=== PATIENT | female | born 1950 | race Caucasian/White ===

== ENCOUNTER 2017-05-09 10:00 | Inpatient (IN) | payer MEDICARE, OTHER ==
[~2017-05-09 10:00] MED LIST: Buffered Lidocaine 0.9% SYRIN* 5 ML/SYR SYRINGE INTRADERM ONE; Famotidine IV* 10 MG/ML 2 ML (20 mg) IV ONE
[2017-05-16] MEDS ORDERED: Buffered Lidocaine 0.9% SYRIN* 5 ML/SYR SYRINGE INTRADERM ONE (06:00)
[2017-05-16] MEDS ORDERED: Metoclopramide IV* 5 MG/ML 2 ML VIAL IV SLOW PU ONE (06:00)
[2017-05-16] MEDS ORDERED: Famotidine IV* 10 MG/ML 2 ML (20 mg) IV ONE (06:00)
[2017-05-16] MEDS ORDERED: ceFAZolin 2 GM PREMIX (*) 50 ML IVPB ONE (11:58)
[2017-05-16] MEDS ORDERED: ceFAZolin 1 GM ADVAN(*) 1 GM ADDV.VIAL IVPB ONE (11:58)
[2017-05-16] MEDS ORDERED: Famotidine IV* 10 MG/ML 2 ML (20 mg) ONE (11:58)
[2017-05-16] MEDS ORDERED: Buffered Lidocaine 0.9% SYRIN* 5 ML/SYR SYRINGE ONE (11:58)
[2017-05-16] MEDS ORDERED: Metoclopramide IV* 5 MG/ML 2 ML VIAL ONE (11:59)
[2017-05-16] MEDS ORDERED: Bupivacaine 0.5% SDV PF* 30 ML VIAL ONE ×2 (13:17→14:51)
[2017-05-16] MEDS ORDERED: fentaNYL* 50 MCG/ML 2 ML VIAL (100 MCG VIAL) ONE (13:58)
[2017-05-16] MEDS ORDERED: Midazolam* 1 MG/ML 5 ML VIAL (5 MG) ONE ×2 (13:58→14:37)
[2017-05-16] MEDS ORDERED: KETAMINE HCL* 50 MG/ML 10 ML VIAL ONE (13:59)
[2017-05-16] MEDS ORDERED: Ondansetron INJ* 2 MG/ML VIAL ONE (14:00)
[2017-05-16] MEDS ORDERED: Propofol* 10 MG/ML 20 ML BTL IV PUSH ONE (14:00)
[2017-05-16] MEDS ORDERED: Lidocaine 2% PF * 5 ML VIAL ONE (14:31)
[2017-05-16] MEDS ORDERED: Lidocaine 2% PF* 10 ML AMP ONE (14:32)
[2017-05-16] MEDS ORDERED: EPHEDrine (Pressors)* 50 MG/ML VIAL ONE (14:52)
[2017-05-16] MEDS ORDERED: Glycopyrrolate IV* 0.2 MG/ML 1 ML VIAL ONE (14:52)
[2017-05-16] MEDS ORDERED: Phenylephrine IV* 40 MCG/ML 10 ML SYRINGE ONE (14:53)
[2017-05-16] MEDS ORDERED: HYDROmorphone* 1 MG/ML 1 ML SYR IV PRN (15:08)
[2017-05-16] MEDS ORDERED: fentaNYL* 50 MCG/ML 2 ML VIAL (100 MCG VIAL) IV PRN (15:08)
[2017-05-16] MEDS ORDERED: Ondansetron INJ* 2 MG/ML VIAL IV PRN ×2 (15:08→16:11)
[2017-05-16] MEDS ORDERED: oxyCODONE/Acetamin 5/325 MG* TAB PO PRN (15:08)
[2017-05-16] MEDS ORDERED: Gelfoam Sponge SIZE 100* SPONGE ONE (15:47)
[2017-05-16] MEDS ORDERED: Morphine INJ* 4 MG/ML 1 ML SYRINGE IV PRN (16:11)
[2017-05-16] MEDS ORDERED: Magnesium Hydroxide LIQ* 30 ML UDC PO PRN (16:11)
[2017-05-16] MEDS ORDERED: Acetaminophen TAB* 325 MG PO PRN (16:11)
[2017-05-16] MEDS ORDERED: diPHENhydraMINE IV* 50 MG/ML 1 ml VIAL (BENADRYL) IV PRN (16:11)
[2017-05-16] MEDS ORDERED: Ondansetron TAB* 4 MG PO PRN (16:11)
[2017-05-16] MEDS ORDERED: Polyethylene Glycol 3350* 17 GM PACKET PO PRN (16:11)
[2017-05-16] MEDS ORDERED: Bisacodyl SUPP* 10 MG SUPP PR PRN (16:11)
[2017-05-16] MEDS ORDERED: Albuterol 2.5 MG/3 ML NEB.SOL* (0.083%) INH PRN (16:23)
[2017-05-16] MEDS ORDERED: Albuterol HFA INHALER* 8 gm MDI INH PRN (16:23)
[2017-05-16] MEDS ORDERED: Dextrose 50% Syringe 50 ML* 25 GM/50 ML SYRINGE IV PUSH PRN (18:13)
[2017-05-16] MEDS ORDERED: Furosemide IV* 10 MG/ML 2 ML VIAL (20 MG) IV ONE (18:57)
[2017-05-16] MEDS: oxyCODONE TAB* 5 MG TAB PO PRN (19:31)
--- NOTE | 2017-05-16 19:39 | RAD ---
Indication: Rales, coronary artery disease. Single frontal view of the chest performed at 1920 hours was reviewed. Comparison is made with previous exam dated December 17, 2015. No mediastinal shift is noted. Heart is of normal size and configuration. Lung graves appear clear. IMPRESSION: NO ACTIVE CARDIOPULMONARY DISEASE IS NOTED.
[2017-05-16] MEDS ORDERED: Warfarin TAB(*) 5 MG PO ONE (20:05)
[2017-05-16] MEDS: Atorvastatin* 20 MG TAB PO SCH (20:26)
[2017-05-16] MEDS: Docusate CAP* 100 MG PO SCH (20:26)
[2017-05-16] MEDS: Gabapentin CAP(*) 300 MG PO SCH (20:26)
[2017-05-16] MEDS: Insulin NPH(*) 1 UNITS UNIT SUBCUT SCH (20:28)
[2017-05-16] MEDS: Artificial Tears* 15 ML BTL BOTH EYES SCH (20:29)
[2017-05-16] MEDS: ceFAZolin 1 GM VIAL(*) 1 GM in NS 0.9% 50 ML* 50 ML IVPB SCH (21:27)
--- NOTE | 2017-05-16 22:16 | CONS ---
CC: Farhan Edouard MD; Joseluis Salas MD CONSULTATION REPORT: DATE OF CONSULTATION: PRIMARY CARE PROVIDER: Farhan Edouard MD REFERRING PROVIDER: Kamar Valadez MD MY ATTENDING HOSPITALIST: Joseluis Salas MD REASON FOR CONSULTATION: Co-management of comorbid medical conditions. HISTORY OF PRESENT ILLNESS: Ms. Gallardo is a 66-year-old female with a past medical history significant for diabetes, hypertension, kidney failure, heart disease with a stent, and hind foot valgus with severe arthritis, who is postop for a talotibial fusion. She also had a PE in December 2009. The patient states she is feeling generally very well except she is a little woozy after surgery. The patient had spinal anesthesia and denies any pain at the surgery site and states that she aches all over, but denies if it is any worse than her baseline. The patient denies chest pain, shortness of breath, nausea, vomiting , or dizziness. The patient states that she took her blood sugar this morning and it was 141, which is about normal for her. The patient states her most recent hemoglobin A1c was approximately 8 at her PCP's office last month. The patient denies any worsening complications from her diabetes including worse numbness or tingling in her hands or feet, decrease in her urine, change in her vision, or changes in her digestive functioning. She is currently on aspirin only for DVT prophylaxis despite her pulmonary embolism being unprovoked. The patient states she was on Coumadin for one month, but that is now done. The patient states she has an inhaler for her asthma, but never uses it. The patient denies any recent illnesses or trauma. EBL for the surgery was minimal. The patient denies any increase in the swelling in her legs or shortness of breath with exertion, though the patient states she does not exercise due to the limitations of her arthritis in her foot. The patient states she does not follow her daily weights. The patient has obstructive sleep apnea and uses a CPAP at home. ADDITIONAL PAST MEDICAL HISTORY: uterine cancer, osteomyelitis of the right medial hindfoot, sepsis, gout, and GERD. CURRENT MEDICATIONS: 1. Aspirin 325 mg p.o. daily. 2. Tramadol 2 tabs p.o. q.6 hours as needed for pain. The patient states she takes about 2 of these a day. 3. Allopurinol 200 mg p.o. q.a.m. 4. Lovastatin 80 mg p.o. at bedtime. 5. Gabapentin 300 mg p.o. b.i.d. 6. Prilosec 20 mg p.o. q.a.m. 7. Furosemide 40 mg p.o. q.a.m. 8. Atenolol 50 mg p.o. q.a.m. The patient states that she did not take this today. The patient also states she did not take her furosemide today. 9. Fexofenadine 180 mg p.o. q.a.m. 10. Amlodipine 5 mg p.o. q.a.m. 11. Albuterol inhaler 1 puff q.6 hours p.r.n. 12. Fluticasone nasal spray 2 sprays both nares q.a.m. 13. Artificial Tears 1 drop both eyes b.i.d. 14. Albuterol nebulizer 1 dose t.i.d. p.r.n. 15. Lactobacillus 1 cap p.o. q.a.m. 16. Insulin NPH 100 units/mL 32 units subcutaneous b.i.d. 17. Calcium carbonate/cholecalciferol 2 tabs p.o. q.a.m. SOCIAL HISTORY: The patient states she is a former smoker, but quit in 1979. The patient denies drinking alcohol or illicit drugs. The patient lives by herself, but has her sister and her [id number] next door. The patient's sister is her healthcare proxy. ALLERGIES: The patient is allergic to LEVAQUIN and GRASS. FAMILY HISTORY: The patient's mother had CHF and chronic kidney disease. The patient's father at 48 of complications of diabetes. The patient's father also had a stroke and hyperlipidemia. The patient had various aunts and cousins who have of lung, bladder, and ovarian cancer. REVIEW OF SYSTEMS: The patient denies fevers, chills, nausea, vomiting, constipation, diarrhea, fatigue, headaches, hepatitis. PHYSICAL EXAM: Vital Signs: Temperature 97.3, pulse rate 62, respiratory rate 20, oxygen saturation 100% on 2 L, blood pressure 120/71. General: The patient is a 66-year-old female, who appears her stated age, in no acute distress, lying on the stretcher in the PACU. HEENT: Head atraumatic, normocephalic. Pupils equal, round, reactive to light. Sclerae anicteric. Pharynx nonerythematous. Palate over arching. Mucosa moist. Neck: Supple. No lymphadenopathy. Cardiac: Regular rate and rhythm. S1 and S2 present. No murmurs, clicks, gallops or rubs. Pulses +2 in the radial bilaterally. Pulses 1+ in the posterior tibialis and dorsalis pedis of the left leg. +2 pitting edema in the left leg. Respiratory: Rales noted in the bilateral lower lobes, good air exchange bilaterally. Abdomen: Obese, nontender, and nondistended. Bowel sounds hypoactive, present in all 4 quadrants. No hepatosplenomegaly. No abdominal bruits auscultated. Genitourinary: No suprapubic tenderness. No CVA tenderness. Neurologic: Cranial nerves II through XII intact. Proximal and Distal strength 5/5 in Bilateral upper and Left lower extremity. Skin: Jeff, dry and intact. DIAGNOSTIC DATA: EKG preoperatively shows normal sinus rhythm. No ischemia. Study is hard to read because of the scanned copy. LABORATORY RESULTS: In preop testing on 04/20/17, white blood cells 8.5, hemoglobin 12.8, hematocrit 40, platelets 159. Sodium 142, potassium 4.7, chloride 105, carbon dioxide 30, creatinine 146, BUN 26, glucose 91, ALT 9, AST 12. IMPRESSION: The patient is a 66-year-old female with a past medical history significant for relatively well-controlled diabetes, hypertension, kidney failure, and heart disease with a stent, who is postop for a talotibial fusion due to progressive right hindfoot valgus and severe osteoarthritis in the ankle. 1. Postop state. DVT prophylaxis is complicated due to the patient's history of unprovoked pulmonary embolism, large body habitus, kidney failure, and recent neuraxial anesthesia. After consulting primary provider. Will start on full anticoagulation with Lovenox at 1 mg/kg body weight and bridging to Coumadin for 1 month. Bowel regimen per primary team. Pain control per primary team. Pain is currently well controlled. 2. Diabetes. The patient is started on 15 units Humulin b.i.d., with a high dose sliding scale with fingerstick monitoring a.c. and h.s. 3. Hypertension. We will hold the patient's hypertensive medications until the morning and we will restart if systolic blood pressure greater than 100. We will restart atenolol if pulse greater than 50. 4. Congestive heart failure. The patient's history of myocardial infarction and rales on exam indicate congestive heart failure. The patient is already on furosemide 40 mg p.o. daily that she did not take this morning. We will supplement with one dose of 20 mg Lasix now and restart Lasix in the morning at home dose. We will order a chest x-ray and a BNP. We will check BMP to monitor potassium in the morning. We will continue aspirin 325 mg daily for secondary prophylaxis of myocardial infarction. Would recommend RADHA inhibitor or ARB therapy when blood pressure will permit. 5. Kidney failure. Fluids discontinued due to heart failure and due to rales in the lungs. We will monitor BMP closely as well as the patient's weight and fluid intake to avoid prerenal kidney injury. 6. Hyperlipidemia. Continue statin at home dose. 7. Asthma. Albuterol inhaler ordered. The patient states she has not used it in a long time. 8. Obstructive sleep apnea. The patient brought in on CPAP machine. We will use at home settings. 9. Gastroesophageal reflux disease. Continue Prilosec at home dose. 10. Gout. Continue allopurinol at home dose. 11. Peripheral neuropathy. We will continue gabapentin at home dose. 12. FEN. Advance consistent carbohydrate diet as tolerated per primary team. 13. Code status. Full code. Sister is the healthcare proxy. 14. Disposition per primary team. TIME SPENT: Approximately 60 minutes were spent on this consultation approximately 30 of which were spent in [id number] with the patient to obtain the history and physical. This case has been discussed with my attending physician, Dr. Joseluis Salas, and he is in agreement with this plan. [id number]/[facility] #: [id number] DEBRA
--- NOTE | 2017-05-17 05:14 | OP ---
DATE OF OPERATION: 05/16/17 - ROOM #339 DATE OF : 46 SURGEON: Kamar Valadez MD [employer] INSTALLER AND REPAIRER: Melva Packer PA-C ANESTHESIOLOGIST: Andrea Stewart MD ANESTHESIA: Spinal. PRE-OP DIAGNOSIS: Previous Charcot arthropathy with valgus hindfoot malalignment at the tibiotalar joint. POST-OP DIAGNOSIS: Previous Charcot arthropathy with valgus hindfoot malalignment at the tibiotalar joint. OPERATIVE PROCEDURE: Removal of screws right medial talonavicular area and then arthrodesis, right tibiotalar joint. DESCRIPTION OF PROCEDURE: The patient was taken to the operating room where thigh tourniquet was inflated. We made a 3 cm longitudinal incision at the medial plate area where the 2 most proximal small frag screws were removed. We irrigated thoroughly, closing the subcutaneous tissue with 2-0 Vicryl and nylon for the skin. We made a longitudinal incision laterally over the fibula down to the distal fibula. Full thickness flap raised off the anterior tibiotalar joint and around the tip of the fibula. A lamina supervisor statement clerks was used to open the joint, which was then debrided with a curette and a 5-mm power robi. We harvested autologous bone graft from the distal fibula laterally, augmenting this with allograft and some DBX bone putty. After thorough irrigation of the tibiotalar joint and soft tissue release medially so that we can reduce the joint, the bone graft was placed within the tibiotalar joint. Fixation consisted of paired 6.5 mm cannulated screws from the heel up to the medial tibial cortex and one 6.5-mm screw from the distal lateral tibia down to the medial talus. Good fixation and compression was obtained from all 3 screws. We then irrigated the lateral wound thoroughly closing with Vicryl and rosie for the skin and a compression dressing plaster splint applied. [id number]/[facility] #: [id number] MTDD
[2017-05-17] MEDS: ceFAZolin 1 GM VIAL(*) 1 GM in NS 0.9% 50 ML* 50 ML IVPB SCH ×2 (05:46→12:35)
[2017-05-17] MEDS: oxyCODONE TAB* 5 MG TAB PO PRN (05:50)
[2017-05-17 06:28] LABS: Hematocrit 35 % (35-47); Hemoglobin 11.2 g/dl (12.0-16.0)
[2017-05-17 06:44] LABS: BUN/Creatinine Ratio 13.8 (8-20); Calcium 8.9 mg/dL (8.6-10.3); EGFR African American 41.2 (>60); EGFR Non-African American 32.1 (>60); Potassium 4.5 mmol/L (3.5-5.0)
--- NOTE | 2017-05-17 07:19 | RAD ---
INDICATION: Right ankle fusion. COMPARISON: Correlation is made with outside prior x-ray studies of the right ankle from March 16, 2017. TECHNIQUE: 14.4 seconds of intermittent fluoroscopic guidance were provided and a single spot film of the right ankle was obtained in the lateral projection in the operating room. FINDINGS: There is a metallic plate and surgical screw present along the medial aspect of the hindfoot. There is placement of 2 additional screws which project over the calcaneus, talus and distal tibia. IMPRESSION: INTRAOPERATIVE CONTROL FILMS. CPT II Codes: 6045F
[2017-05-17] MEDS ORDERED: INSULIN NPH SUBCUT SCH (08:00)
[2017-05-17] MEDS ORDERED: Insulin NPH(*) 1 UNITS UNIT SUBCUT ONE (09:00)
[2017-05-17] MEDS ORDERED: Atenolol TAB* 50 MG PO SCH (09:00)
[2017-05-17] MEDS ORDERED: amLODIPine TAB* 5 MG PO SCH (09:00)
--- NOTE | 2017-05-17 09:21 | PN ---
Progress Note - Progress Note Date of Service: 05/17/17 SOAP: Subjective: []Patient seen at bedside, had moderate pain overnight, feels like it is better controlled this am. She has been up to the BR with help this am. Denies SOB, CP dizziness. She hopes to acquire a bed at [facility]. Objective: [] Vital Signs Temp 99.1 F 05/17/17 03:55 Pulse 85 05/17/17 05:56 Resp 16 05/17/17 05:50 BP 139/55 05/17/17 05:56 Pulse Ox 93 05/17/17 05:56 Intake & Output 05/16/17 05/17/17 05/17/17 18:59 06:59 18:59 Intake Total 2200 1242 Output Total 0 950 Balance 2200 292 Weight 292 lb 9.6 oz 289 lb Intake: IV Fluids 2200 342 CEFAZOLIN 3G 100 LR 2100 342 IVPB 100 ABX - CEFAZOLIN 100 Oral 800 Output: Urine 0 950 Other: Estimated Void Large # Voids 1 Laboratory Results - last 24 hr 05/16/17 05/16/17 05/16/17 12:29 19:17 21:38 Hgb Hct INR (Anticoag Therapy) Sodium Potassium Chloride Carbon Dioxide Anion Gap BUN Creatinine Est GFR ( Amer) Est GFR (Non-Af Amer) BUN/Creatinine Ratio Glucose POC Glucose (mg/dL) 153 H 71 135 H Calcium B-Natriuretic Peptide 05/17/17 05/17/17 05/17/17 06:18 06:18 06:18 Hgb 11.2 L Hct 35 INR (Anticoag Therapy) 1.10 Sodium 138 Potassium 4.5 Chloride 104 Carbon Dioxide 28 Anion Gap 6 BUN 22 Creatinine 1.60 H Est GFR ( Amer) 41.2 Est GFR (Non-Af Amer) 32.1 BUN/Creatinine Ratio 13.8 Glucose 200 H POC Glucose (mg/dL) Calcium 8.9 B-Natriuretic Peptide 05/17/17 06:18 Hgb Hct INR (Anticoag Therapy) Sodium Potassium Chloride Carbon Dioxide Anion Gap BUN Creatinine Est GFR ( Amer) Est GFR (Non-Af Amer) BUN/Creatinine Ratio Glucose POC Glucose (mg/dL) Calcium B-Natriuretic Peptide 69 Right ankle with some old dried bloody discharge on medial aspect of her splint toes are pink and warm, decreased sensation to light touch- baseline neouroplathy Assessment: []s/p Right ankle fusion POD #1 Plan: []PT/OT [facility] SNF- prefers [facility] Lovenox BID Pain management
[2017-05-17] MEDS: Artificial Tears* 15 ML BTL BOTH EYES SCH ×2 (10:49→20:53)
[2017-05-17] MEDS: Fluticasone NASAL SPRAY 50MCG* 16 gm SPRAY BTL BOTH NARES SCH (10:49)
[2017-05-17] MEDS: Omeprazole CAP* 20 MG PO SCH (10:50)
[2017-05-17] MEDS: Gabapentin CAP(*) 300 MG PO SCH ×2 (10:50→20:33)
[2017-05-17] MEDS: Cetirizine* 10 MG TAB PO SCH (10:50)
[2017-05-17] MEDS: Allopurinol TAB* 100 MG PO SCH (10:51)
[2017-05-17] MEDS: Atenolol TAB* 50 MG PO SCH (10:51)
[2017-05-17] MEDS: Docusate CAP* 100 MG PO SCH ×2 (10:51→20:33)
[2017-05-17] MEDS: Furosemide TAB* 40 MG PO SCH (10:51)
[2017-05-17] MEDS: Vitamin THERAPEUTIC TAB PO SCH (10:51)
[2017-05-17] MEDS: amLODIPine TAB* 5 MG PO SCH (10:52)
[2017-05-17] MEDS: Insulin LISPRO* 1 UNITS UNIT SUBCUT SCH ×3 (10:56→18:00)
[2017-05-17] MEDS: Enoxaparin(*) 150 MG/ML 1 ML SYRINGE SUBCUT SCH ×2 (10:58→20:55)
[2017-05-17] MEDS ORDERED: Enoxaparin(*) 100 MG/ML SYR SUBCUT SCH (12:00)
--- NOTE | 2017-05-17 20:13 | PN ---
Subjective Date of Service: 05/17/17 Interval History: . denies new c/o s/p R ankle fusion without complication Family History: Unchanged from Admission Social History: Unchanged from Admission Past Medical History: Unchanged from Admission Objective Active Medications: . Acetaminophen (Tylenol Tab*) 650 mg PO Q4H PRN PRN Reason: pain, fever Albuterol (Ventolin 2.5 Mg/3 Ml Neb.Urmila*) 2.5 mg INH TID PRN PRN Reason: SOB/WHEEZING Albuterol (Ventolin Hfa Inhaler*) 1 puff INH Q6H PRN PRN Reason: SOB/WHEEZING [facility] ([facility]oprim [facility]*) [facility] [place] Admin: 05/17/17 10:51 Dose: 200 mg Amlodipine Besylate (Norvasc Tab*) [facility] Last Admin: 05/17/17 10:52 Dose: 5 mg Atenolol (Tenormin Tab*) [facility] Last Admin: 05/17/17 10:51 Dose: 50 mg Atorvastatin Calcium (Lipitor*) 20 mg PO BEDTIME [facility] Last Admin: 05/16/17 20:26 Dose: 20 mg Bisacodyl (Dulcolax Supp*) 10 mg AK DAILY PRN PRN Reason: constipation Cetirizine HCl (Zyrtec*) 10 [facility] PRN Reason: Protocol Last Admin: 05/17/17 10:50 Dose: 10 mg Dextrose (D50w Syringe 50 Ml*) 12.5 gm IV PUSH .FOR FS < 60 - SS PRN PRN Reason: FS < 60 Diphenhydramine HCl (Benadryl Iv*) 12.5 mg IV Q6H PRN PRN Reason: PRURITIS Docusate Sodium (Colace Cap*) 100 mg PO BID [facility] Last Admin: 05/17/17 10:51 Dose: 100 mg Enoxaparin Sodium (Lovenox(*)) 130 mg SUBCUT Q12H [facility] Last Admin: 05/17/17 10:58 Dose: 130 mg Fluticasone Propionate (Flonase Nasal [place] 50mcg*) 2 spray BOTH [facility] Last Admin: 05/17/17 10:49 Dose: 2 spray Furosemide (Lasix Tab*) 40 mg PO [facility] Last Admin: 05/17/17 10:51 Dose: 40 mg Gabapentin (Neurontin Cap(*)) 300 mg PO BID [facility] Last Admin: 05/17/17 10:50 Dose: 300 mg Insulin Human Lispro (Humalog*) 0 units SUBCUT AC [facility] PRN Reason: Protocol Last Admin: 05/17/17 18:00 Dose: 6 unit Insulin Human NPH (Insulin Nph(*)) 15 units SUBCUT 2100 [facility] Last Admin: 05/16/17 20:28 Dose: 15 units Lactulose (Lactulose*) 30 ml PO Q6H PRN PRN Reason: constipation Magnesium Hydroxide (Milk Of Magnesia Liq*) 30 ml PO Q6H PRN PRN Reason: constipation Morphine Sulfate (Morphine Inj (Syringe)*) 4 mg IV Q2H PRN PRN Reason: PAIN - BREAKTHROUGH Last Admin: 05/16/17 21:25 Dose: 4 mg Multivitamins (Theragran Tab*) 1 tab PO DAILY [facility] Last Admin: 05/17/17 10:51 Dose: 1 tab Omeprazole (Prilosec Cap*) 20 mg PO QAM [facility] Last Admin: 05/17/17 10:50 Dose: 20 mg Ondansetron HCl (Zofran Inj*) 4 mg IV Q6H PRN PRN Reason: nausea Ondansetron HCl (Zofran Tab*) 4 mg PO Q6H PRN PRN Reason: NAUSEA Oxycodone HCl (Roxycodone Tab*) 10 mg PO Q4H PRN PRN Reason: PAIN - MODERATE TO SEVERE Last Admin: 05/17/17 05:50 Dose: 10 mg Oxycodone/Acetaminophen (Percocet 5/325 Tab*) 1 tab PO Q3H PRN PRN Reason: PAIN - MILD TO MODERATE Polyethylene Glycol/Electrolytes (Miralax*) 17 gm PO DAILY PRN PRN Reason: Constipation Polyvinyl Alcohol (Polyvinyl Alcohol 1.4% Opth*) 1 drop BOTH EYES BID [facility] Last Admin: 05/17/17 10:49 Dose: 1 drop . Vital Signs 05/16/17 05/16/17 05/16/17 20:26 20:49 21:25 Temperature 97.3 F Pulse Rate 73 Respiratory 17 18 17 Rate Blood Pressure 157/71 (mmHg) O2 Sat by Pulse 100 Oximetry 05/16/17 05/16/17 05/16/17 21:31 22:25 22:26 Temperature Pulse Rate Respiratory 17 16 16 Rate Blood Pressure (mmHg) O2 Sat by Pulse Oximetry Appearance: NAD Eyes: No Scleral Icterus Ears/Nose/Mouth/Throat: Clear Oropharnyx Neck: NL Appearance and Movements; NL JVP Respiratory: Symmetrical Chest Expansion and Respiratory Effort Cardiovascular: NL Sounds; No Murmurs; No JVD Abdominal: NL Sounds; No Tenderness; No Distention Lymphatic: No Cervical Adenopathy Extremities: No Edema, - - s/p ankle surgery Skin: No Rash or Ulcers Neurological: Alert and Oriented x 3 Lines/Tubes/Other Access: Clean, Dry and Intact Peripheral IV Nutrition: Taking PO's Result Diagrams: 05/17/17 06:18 05/17/17 06:18 Microbiology and Other Data: Microbiology 05/16/17 14:51 Anaerobic Culture - Preliminary Wound - Right No Growth Day 1 05/16/17 14:51 Gram Stain - Final Foot Right Wound Culture - Preliminary No Growth Day 1 Assess/Plan/Problems-Billing . Assessment: 66 yo female s/p R ankle fusion on DVT treatment given h/p PE and current DVT ==> likely will need substantial duration, perhaps consider heme consult as outpatient to govern parameters for discontinuation of AC. IDDM managed with home insulin regimen Extensive medication list reviewed Pain control as per ortho Plan for rehab - selecting location.
[2017-05-17] MEDS: Atorvastatin* 20 MG TAB PO SCH (20:33)
[2017-05-17] MEDS: oxyCODONE/Acetamin 5/325 MG* TAB PO PRN (20:33)
[2017-05-17] MEDS: Insulin NPH(*) 1 UNITS UNIT SUBCUT SCH (21:03)
[2017-05-18 05:53] LABS: Hematocrit 35 % (35-47); Hemoglobin 11.2 g/dl (12.0-16.0); Mean Platelet Volume 10 um3 (7.4-10.4)
[2017-05-18 06:04] LABS: EGFR African American 35.1 (>60); EGFR Non-African American 27.3 (>60)
[2017-05-18] MEDS: Insulin LISPRO* 1 UNITS UNIT SUBCUT SCH ×3 (08:23→17:21)
[2017-05-18] MEDS: Artificial Tears* 15 ML BTL BOTH EYES SCH ×2 (09:36→20:47)
[2017-05-18] MEDS: Fluticasone NASAL SPRAY 50MCG* 16 gm SPRAY BTL BOTH NARES SCH (09:36)
[2017-05-18] MEDS: Enoxaparin(*) 150 MG/ML 1 ML SYRINGE SUBCUT SCH ×2 (09:37→20:44)
[2017-05-18] MEDS: Omeprazole CAP* 20 MG PO SCH (09:39)
[2017-05-18] MEDS: Gabapentin CAP(*) 300 MG PO SCH ×2 (09:39→20:42)
[2017-05-18] MEDS: Furosemide TAB* 40 MG PO SCH (09:39)
[2017-05-18] MEDS: Allopurinol TAB* 100 MG PO SCH (09:39)
[2017-05-18] MEDS: Atenolol TAB* 50 MG PO SCH (09:40)
[2017-05-18] MEDS: Docusate CAP* 100 MG PO SCH ×2 (09:40→20:42)
[2017-05-18] MEDS: Vitamin THERAPEUTIC TAB PO SCH (09:40)
[2017-05-18] MEDS: Cetirizine* 10 MG TAB PO SCH (09:40)
[2017-05-18] MEDS: amLODIPine TAB* 5 MG PO SCH (09:40)
--- NOTE | 2017-05-18 09:42 | PN ---
Progress Note - Progress Note Date of Service: 05/18/17 SOAP: Subjective: []Patient seen at bedside. She is doing well. Offers little c/o pain. Objective: [] Laboratory Results - last 24 hr 05/17/17 05/17/17 05/17/17 12:35 17:39 20:50 Hgb Hct Plt Count MPV INR (Anticoag Therapy) BUN Creatinine Est GFR ( Amer) Est GFR (Non-Af Amer) POC Glucose (mg/dL) 263 H 218 H 268 H 05/18/17 05/18/17 05/18/17 05:40 05:40 05:40 Hgb 11.2 L Hct 35 Plt Count 135 L MPV 10 INR (Anticoag Therapy) 1.22 H BUN 26 H Creatinine 1.84 H Est GFR ( Amer) 35.1 Est GFR (Non-Af Amer) 27.3 POC Glucose (mg/dL) 05/18/17 07:26 Hgb Hct Plt Count MPV INR (Anticoag Therapy) BUN Creatinine Est GFR ( Amer) Est GFR (Non-Af Amer) POC Glucose (mg/dL) 293 H Vital Signs Temp 98.3 F 05/18/17 07:49 Pulse 65 05/18/17 07:49 Resp 17 05/18/17 07:49 BP 128/47 05/18/17 07:49 Pulse Ox 98 05/18/17 07:49 Intake & Output 05/17/17 05/18/17 05/18/17 18:59 06:59 18:59 Intake Total 640 960 320 Output Total 1000 1150 400 Balance -360 -190 -80 Weight 290 lb 1.6 oz Intake: Oral 640 960 320 Output: Urine 1000 1150 400 Other: Estimated Void Medium # Bowel Movements 0 # Voids 1 Right ankle RADHA with old dried blood medial aspect of splint decreased sensation light touch, baseline neuropathy Assessment: []s/p Right ankle fusion POD #2 Plan: []PT/OT NWB RLE Lovenox [facility]
--- NOTE | 2017-05-18 11:06 | PN ---
Subjective Date of Service: 05/18/17 Interval History: Patient seen and examined at bedside. Pt states that she is feeling well today. Denies fever, chills, shortness of breath, chest discomfort, N/V/D. Pt reports an intermittent sore throat and post nasal drip. Family History: Unchanged from Admission Social History: Unchanged from Admission Past Medical History: Unchanged from Admission Objective Active Medications: Acetaminophen (Tylenol Tab*) 650 mg PO Q4H PRN Reason: pain, fever Albuterol (Ventolin 2.5 Mg/3 Ml Neb.Urmila*) 2.5 mg INH TID PRN Reason: SOB/ WHEEZING Albuterol (Ventolin Hfa Inhaler*) 1 puff INH Q6H PRN Reason: SOB/WHEEZING Allopurinol (Zyloprim Tab*) 200 mg PO QAM ANA Amlodipine Besylate (Norvasc Tab*) 5 mg PO QAM ANA Atenolol (Tenormin Tab*) 50 mg PO QAM ANA Atorvastatin Calcium (Lipitor*) 20 mg PO BEDTIME ANA Bisacodyl (Dulcolax Supp*) 10 mg [place] DAILY PRN Reason: constipation Cetirizine HCl (Zyrtec*) 10 mg PO QAM ANA Reason: Protocol Dextrose (D50w Syringe 50 Ml*) 12.5 gm IV PUSH .FOR FS < 60 - SS PRN Reason: FS < 60 Diphenhydramine HCl (Benadryl Iv*) 12.5 mg IV Q6H PRN Reason: PRURITIS Docusate Sodium (Colace Cap*) 100 mg PO BID ANA Enoxaparin Sodium (Lovenox(*)) 130 mg SUBCUT Q12H ANA Fluticasone Propionate (Flonase Nasal [place] 50mcg*) 2 spray BOTH NARES QAM ANA Furosemide (Lasix Tab*) 40 mg PO QAM ANA Gabapentin (Neurontin Cap(*)) 300 mg PO BID ANA Insulin Human Lispro (Humalog*) 0 units SUBCUT AC ANA Insulin Human NPH (Insulin Nph(*)) 15 units SUBCUT 2100 ANA Lactulose (Lactulose*) 30 ml PO Q6H PRN Reason: constipation Magnesium Hydroxide (Milk Of Magnesia Liq*) 30 ml PO Q6H PRN Reason: constipation Morphine Sulfate (Morphine Inj (Syringe)*) 4 mg IV Q2H PRN Reason: PAIN - BREAKTHROUGH Multivitamins (Theragran Tab*) 1 tab PO DAILY [facility] Omeprazole (Prilosec Cap*) 20 mg PO QAM [facility] Ondansetron HCl (Zofran Inj*) 4 mg IV Q6H PRN Reason: nausea Ondansetron HCl (Zofran Tab*) 4 mg PO Q6H PRN Reason: NAUSEA Oxycodone HCl (Roxycodone Tab*) 10 mg PO Q4H PRN Reason: PAIN - MODERATE TO SEVERE Oxycodone/Acetaminophen (Percocet 5/325 Tab*) 1 tab PO Q3H PRN Reason: PAIN - MILD TO MODERATE Polyethylene Glycol/Electrolytes (Miralax*) 17 gm PO DAILY PRN Reason: Constipation Polyvinyl Alcohol (Polyvinyl Alcohol 1.4% Opth*) 1 drop BOTH EYES BID [facility] Vital Signs 05/17/17 05/17/17 05/17/17 11:44 12:50 15:24 Temperature 98.3 F 98.6 F Pulse Rate 68 60 Respiratory 16 16 21 Rate Blood Pressure 153/64 157/58 (mmHg) O2 Sat by Pulse 97 96 Oximetry 05/17/17 05/17/17 05/17/17 19:15 19:30 19:33 Temperature 98.5 F Pulse Rate 73 Respiratory 23 16 16 Rate Blood Pressure 150/51 (mmHg) O2 Sat by Pulse 95 Oximetry 05/17/17 05/17/17 05/17/17 20:33 22:33 23:28 Temperature 99.3 F Pulse Rate 71 Respiratory 16 16 16 Rate Blood Pressure 142/36 (mmHg) O2 Sat by Pulse 93 Oximetry 05/18/17 05/18/17 05/18/17 03:53 07:49 08:00 Temperature 98.8 F 98.3 F Pulse Rate 66 65 Respiratory 18 17 18 Rate Blood Pressure 118/37 128/47 (mmHg) O2 Sat by Pulse 98 98 98 Oximetry Oxygen Devices in Use Now: None Appearance: NAD, sitting up in a chair Ears/Nose/Mouth/Throat: Mucous Membranes Moist Respiratory: Symmetrical Chest Expansion and Respiratory Effort, Clear to Auscultation Cardiovascular: NL Sounds; No Murmurs; No JVD Abdominal: NL Sounds; No Tenderness; No Distention Extremities: No Edema Neurological: Alert and Oriented x 3 Lines/Tubes/Other Access: Clean, Dry and Intact Peripheral IV - site benign Nutrition: Taking PO's Result Diagrams: 05/18/17 05:40 05/18/17 05:40 Microbiology and Other Data: Microbiology 05/16/17 14:51 Anaerobic Culture - Preliminary Wound - Right No Growth Day 1 05/16/17 14:51 Gram Stain - Final Foot Right Wound Culture - Preliminary No Growth Day 1 Assess/Plan/Problems-Billing Assessment: Ms. Gallardo is a 66 yo female with PMH significant for DM, HTN, renal failure, CAD , hx PE, and GERD who is s/p R ankle fusion with Dr. Valadez on 05/16/17 - Patient Problems (1) S/P ankle fusion Code(s): Z98.1 - ARTHRODESIS STATUS SNOMED Code(s): 09919971724045 Comment: - Managment per Ortho - Continue pain management and bowel regimen (2) Diabetes Code(s): E11.9 - TYPE 2 DIABETES MELLITUS WITHOUT COMPLICATIONS SNOMED Code(s) : 26071007 Comment: - Blood glucose 218-310s today. - Continue blood glucose checks AC/HS and Consistent carb diet. - Continue Lispro sliding scale coverage. - Increase NPH to 15 units BID today. (3) CAD (coronary artery disease) Code(s): I25.10 - ATHSCL HEART DISEASE OF [place] CORONARY ARTERY W/O ANG PCTRS SNOMED Code(s): 37873664 Comment: - Continue atenolol and statin - Hold aspirin, resume when ok with ortho (4) HTN (hypertension) Code(s): I10 - ESSENTIAL (PRIMARY) HYPERTENSION SNOMED Code(s): 30254339 Comment: - SBP 110-150's - Continue Atenolol and Norvasc (5) Sleep apnea, obstructive Code(s): G47.33 - OBSTRUCTIVE SLEEP APNEA (ADULT) (PEDIATRIC) SNOMED Code(s): 50286534 Comment: - Use home CPAP (6) GERD (gastroesophageal reflux disease) Code(s): K21.9 - GASTRO-ESOPHAGEAL REFLUX DISEASE WITHOUT ESOPHAGITIS SNOMED Code(s): 204039152 Comment: - Continue omeprazole (7) Gout Code(s): M10.9 - GOUT, UNSPECIFIED SNOMED Code(s): 67234760 Comment: - Continue allopurinol (8) Asthma Code(s): J45.909 - UNSPECIFIED ASTHMA, UNCOMPLICATED SNOMED Code(s): 191001804 Comment: - Albuterol inhaler prn (9) Renal failure Comment: - Appears to be near baselline (10) DVT prophylaxis Code(s): OJQ4993 - SNOMED Code(s): 167469330 Comment: - per Ortho - Lovenox - on DVT treatment given h/o PE and current DVT ==> likely will need substantial duration, perhaps consider heme consult as outpatient to govern parameters for discontinuation of AC. (11) Full code status Code(s): Z78.9 - OTHER SPECIFIED HEALTH STATUS SNOMED Code(s): 485532711 Status and Disposition: Inpatient. Discharge per Ortho. Pt will need GOGO at discharge.
[2017-05-18] MEDS: oxyCODONE/Acetamin 5/325 MG* TAB PO PRN ×2 (16:46→20:43)
[2017-05-18] MEDS: Atorvastatin* 20 MG TAB PO SCH (20:42)
[2017-05-18] MEDS: Insulin NPH(*) 1 UNITS UNIT SUBCUT SCH (20:58)
[2017-05-19 05:07] LABS: Hematocrit 32 % (35-47); Hemoglobin 10.4 g/dl (12.0-16.0)
--- NOTE | 2017-05-19 07:46 | PN ---
PROGRESS NOTE: DATE OF SERVICE: 05/19/17 - ROOM #[id number] HISTORY AND HOSPITAL COURSE: Gisele is in her third day postop for right ankle arthrodesis. She is alert and oriented and in no acute distress in the bed. Her pain is at a 2/10, mostly when she is up with the foot dependent. She has been up a little bit dangling in the chair not really doing any significant walking with the walker. She is nonweight-bearing on the right leg, which is particularly important given her dense neuropathy. She also has had poor glucose control, but this may be stress related. She is awaiting rehab placement and this will be attended to with her rehab team. She is on aggressive blood thinning because of her history of pulmonary embolism. She will continue under medical care and after discharge or at least transfer to a rehab, I will be able to follow her then in my office in [place]. [id number]/[facility] #: [id number] MTDD
[2017-05-19] MEDS: Insulin LISPRO* 1 UNITS UNIT SUBCUT SCH (08:06)
[2017-05-19] MEDS: Furosemide TAB* 40 MG PO SCH (08:56)
[2017-05-19] MEDS: Atenolol TAB* 50 MG PO SCH (08:58)
[2017-05-19] MEDS: Omeprazole CAP* 20 MG PO SCH (08:58)
[2017-05-19] MEDS: Vitamin THERAPEUTIC TAB PO SCH (08:58)
[2017-05-19] MEDS: amLODIPine TAB* 5 MG PO SCH (08:58)
[2017-05-19] MEDS: Docusate CAP* 100 MG PO SCH (08:58)
[2017-05-19] MEDS: Gabapentin CAP(*) 300 MG PO SCH (08:58)
[2017-05-19] MEDS: Cetirizine* 10 MG TAB PO SCH (08:58)
[2017-05-19] MEDS: Insulin NPH(*) 1 UNITS UNIT SUBCUT SCH (08:58)
[2017-05-19] MEDS: Allopurinol TAB* 100 MG PO SCH (08:58)
[2017-05-19] MEDS: Enoxaparin(*) 150 MG/ML 1 ML SYRINGE SUBCUT SCH (08:59)
[2017-05-19] MEDS: Fluticasone NASAL SPRAY 50MCG* 16 gm SPRAY BTL BOTH NARES SCH (09:00)
[2017-05-19] MEDS: Artificial Tears* 15 ML BTL BOTH EYES SCH (09:00)
[2017-05-19 12:11] VITALS: BP 135/40
--- NOTE | 2017-05-19 12:22 | DS ---
AMENDED REPORT NOW INCLUDES COSIGNER DESIGNATION - ESIGNED BEFORE ADJUSTMENT DATE OF ADMISSION: 05/16/2017. DATE OF DISCHARGE: 05/19/2017. ATTENDING PHYSICIAN: Dr. Kamar Valadez * (dictated by ALMAZ Johnson). ADMISSION DIAGNOSIS: Charcot arthropathy with valgus hindfoot and malalignment at the tibiotalar joint right lower extremity. DISCHARGE DIAGNOSIS: Charcot arthropathy with valgus hindfoot and malalignment at the tibiotalar joint right lower extremity. SURGERY PERFORMED: Removal of screws right medial talonavicular area and then arthrodesis right tibiotalar joint. HOSPITAL COURSE: The patient is a 66-year-old female who has had difficulties with long-standing deformity and advanced degenerative changes secondary to Charcot arthropathy of her right ankle. The patient elected to proceed with right ankle arthrodesis and was taken to the operating room under the care of Dr. Kamar Valadez on the date of 05/16/2017. The patient tolerated the procedure well and left the operating room in stable condition. She was admitted for definitive rehabilitation placement as she could not function at home independently safely. The patient did not have any acute postoperative complications. She was able to get out of bed to a wheelchair, remaining nonweightbearing on her right lower extremity. Her pain is minimal. She was found to be stable orthopedically for discharge to the [facility] on 05/19/2017. CONDITION ON DISCHARGE: Her splint has some old dried bloody drainage on the medial aspect of the splint which is to be kept intact until her follow-up appointment. Her vital signs are stable and she is afebrile. She has decreased sensation in her toes due to long-standing neuropathy, but she has good capillary refill and her toes are pink and warm under the splint. PLAN: Discharged to [facility]. She will remain nonweightbearing on the right lower extremity. Elevate her right ankle while in bed. We recommend a follow-up in the office in roughly seven to [address] Valadez at the [place] office. She will continue on her Lovenox as prescribed in house. ALMAZ QUINTERO [id number]/[facility] #: [id number] DEBRA
== END 2017-05-19 12:20 | DRG 493 ==
LOC: AA 05-16 11:43 → SSU 05-16 16:11
PROVIDERS: ADMIT Orthopaedic Surgery; ATTEND Orthopaedic Surgery
PROC: 0SPF04Z Removal of Internal Fixation Device from Right Ankle Joint, Open Approach (ICD-10-PCS; 2017-05-16)
PROC: 0QBJ0ZZ Excision of Right Fibula, Open Approach (ICD-10-PCS; 2017-05-16)
PROC: 0SGF0ZZ (ICD-10-PCS; principal; 2017-05-16 13:30)
DX: M19.071 Primary osteoarthritis, right ankle and foot (principal); I13.0 Hypertensive heart and chronic kidney disease with heart failure and stage 1 through stage 4 chronic kidney disease, or unspecified chronic kidney disease; E11.22 Type 2 diabetes mellitus with diabetic chronic kidney disease; E11.40 Type 2 diabetes mellitus with diabetic neuropathy, unspecified; I50.9 Heart failure, unspecified; M86.671 Other chronic osteomyelitis, right ankle and foot; Z68.42 Body mass index [BMI] 45.0-49.9, adult; M14.671 Charcot's joint, right ankle and foot; E78.5 Hyperlipidemia, unspecified; M54.16 Radiculopathy, lumbar region; E66.01 Morbid (severe) obesity due to excess calories; M21.071 Valgus deformity, not elsewhere classified, right ankle; J45.909 Unspecified asthma, uncomplicated; N18.9 Chronic kidney disease, unspecified; I25.10 Atherosclerotic heart disease of native coronary artery without angina pectoris; K21.9 Gastro-esophageal reflux disease without esophagitis; G47.33 Obstructive sleep apnea (adult) (pediatric); M10.9 Gout, unspecified; Z91.048 Other nonmedicinal substance allergy status; Z82.49 Family history of ischemic heart disease and other diseases of the circulatory system; Z95.5 Presence of coronary angioplasty implant and graft; Z85.42 Personal history of malignant neoplasm of other parts of uterus; Z88.1 Allergy status to other antibiotic agents; Z87.891 Personal history of nicotine dependence; Z86.711 Personal history of pulmonary embolism; Z84.1 Family history of disorders of kidney and ureter; Z82.3 Family history of stroke; Z80.1 Family history of malignant neoplasm of trachea, bronchus and lung; Z80.52 Family history of malignant neoplasm of bladder; Z80.41 Family history of malignant neoplasm of ovary; Z83.49 Family history of other endocrine, nutritional and metabolic diseases; Z83.3 Family history of diabetes mellitus; I25.2 Old myocardial infarction
CPT/HCPCS: 36415; 62323; 71010; 76001; 80048; 82565; 83880; 84520; 85014; 85018; 85049; 85610; 87070; 87073; 87205; 88300; 94760; A9270-GY; C1713; C1776; C9359; J0690; J1650; J1940; J2001; J2250; J2270; J2405; J2704; J2765; J3010